=== PATIENT | male | born 1980 | race Caucasian/White ===

== ENCOUNTER 2023-09-24 08:52 | Outpatient (CLI) | payer OTHER ==
--- NOTE | 2023-09-24 09:52 | Sleep Patient Instructions ---
Sleep Center Visit Summary - Patient Visit Information Reason for Visit: Initial consultation - Patient Instructions Additional Instructions: You will continue with CPAP therapy once we can get a replacement device. A supply prescription will be sent to DME for a new machine and supplies We encourage you to continue to try to lose weight. Please follow up with the sleep care office one month after obtaining new device. - Clinic Information Contact: [facility] [address] [place] [address] [email or web address] T: [phone]
--- NOTE | 2023-09-24 10:03 | SLEEP CARE CONSULTATION ---
Information from patient questionnaire entered by Kacey Ornelas. I have reviewed and concur with the information entered by Kacey Ornelas. This document represents the service I personally performed and the decisions made by me, More Rooney ARNP. History of Present Illness Service Date and Time: 09/24/2023 0852 Reason for Visit: New patient, sleep apnea on CPAP therapy Chief Complaint: reports: Insomnia, Unrefreshed sleep, Snoring, Excessive daytime sleepiness, Observed pauses in breathing, Fatigue, Frequent awakenings at night Date of Onset: 15YRS Usual bedtime: 830PM Time it takes to fall asleep: 30MIN Snores at night: Yes Observed to quit breathing while asleep: Yes Sleeps alone due to snoring: Yes Number of times waking at night: 2-3 Reasons for waking at night: reports: Other (UNKNOWN). denies: Choking, Gasping for air Toss, Turn, or Twitch while sleeping: Yes Recalls having dreams: Yes Usually gets out of bed at: 4AM Feels refreshed in the morning: No Morning headache: Yes (1-2 times a week) Sleepy or fatigued during the day: Yes Ever fallen asleep while driving: Yes (drowsy driving, no accidents) Takes day naps: Yes (4-5 times a week) Dreams during day naps: No Prior sleep studies: Yes Additional HPI information: TIMOB ANDERSEN was previously diagnosed to have unknown, AHI unknown, sleep apnea-hypopnea syndrome and comes in today to establish care for CPAP therapy. He tells me that his machine broke about 1.5 months ago. He says he was diagnosed with severe sleep apnea. - Parasomnia Symptoms Ever been unable to move upon waking from sleep: No Walks in sleep: No Talks in sleep: Yes Ever acted out dreams in sleep: No Ever felt weak in the knees when startled or emotional: No Bothered by creepy, crawly, restless sensations in legs: Yes Problems with memory or concentration: Yes CPAP Compliance Data Compliance data discussion: He has a Resmed Airsense 10 that is about 4 years old. He has been buying his supplies online. He is using a full face mask, AirFit F20, medium cushion. His machine stopped working about 6 weeks ago, it will not turn on. He tried replacing the electrical cord and it still does not work. He used to wear it 6-7 hours nightly prior to it breaking. He thinks his pressure is set at 17 cmH2O. Subjective Patient concerns: reports: aerophagia (since weight loss, occasional). denies: mask discomfort, air blowing in eyes, mask leak noise, condensation in mask/hose, nasal congestion, dry mouth, nose, throat, epistaxis Observed to snore while using device: No Current pressure setting perceived as: comfortable On therapy, patient: reports: sleeping better, awakening more refreshed, being more awake and alert during the day, more rested overall. 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 Patient is and lives in . Have you smoked in the past 12 months: Yes Cigarettes per day (20/pack): 10 Years of smokin Smoking Pack Years: 12.5 Alcohol use: Yes Alcohol amount and frequency: 3 SHOTS DAILY Caffeine use: Yes Caffeine amount and frequency: POP OCCASIONALLY Family History Family history of sleep disordered breathing: Yes Family Hx Sleep Apnea: Mother: Sleep apnea - Treated, Father: Sleep apnea - Treated Allergies and Home Medications Known drug allergies: No Drug allergies reviewed: Yes Home medication list reviewed: Yes (as listed) Allergy and home medication list: Home Medications Medication Instructions Recorded Confirmed Last Taken Type Alprazolam [Xanax Xr] See Rx Instructions .ROUTE .COMPLEX 09/24/23 09/24/23 U nknown History Escitalopram Oxalate [Lexapro] See Rx Instructions .ROUTE .COMPLEX 09/24/23 09/24/23 Unknown History QUEtiapine [SEROquel] See Rx Instructions .ROUTE .COMPLEX 09/24/23 09/24/23 Unkn own History Review of Systems Weight loss over past 5 years: 50 Cardiovascular: reports: leg or foot swelling. denies: high blood pressure Respiratory: reports: wheeze Neurological: denies: headaches Psychiatric: reports: anxiety, depression, mood disorder Endocrine: reports: sluggishness Musculoskeletal: reports: joint swelling Physical Exam Vital signs obtained and entered by: KACEY Muñoz MA Blood Pressure: 128/74 (LEFT ARM) Cuff size: long Heart Rate: 51 O2 Saturation: 97 Height: 5 ft 7 in Weight: 273 lb 9.6 oz Body Mass Index: 42.8 BMI Classification: Morbidly Obese Neck circumference: 16.5 Heart: regular rate and rhythm Lungs: clear bilaterally Impression and Plan 1. Obstructive Sleep Apnea-Hypopnea Syndrome, unknown, with unknown treatment compliance and unknown apnea control. On CPAP therapy, the patient has better sleep quality and is more rested overall. About 6 weeks ago his machine stopped working. He is noticing an increase in his daytime fatigue, sleepiness and lower energy. He needs a new CPAP device. We have requested a copy of his last sleep study. He has lost about 50 pounds in the last 5 years and has noted increased aerophagia with using CPAP. We probably need to decrease his pressure settings. I would also like to see if we can get another sleep study to verify any changes in his sleep apnea with his weight loss. I will order a PSG and followup after the study. Once I have a copy of last sleep study or new study results, I will write for DME transfer and new machine/supplies. A DWO prescription will be made. Compliance guidelines for new device and follow up discussed. He voiced understanding and agreement with plan of care. Patient's apnea severity and rationale for treatment to reduce apnea, improve sleep quality and reduce cardiovascular and cerebrovascular events was reviewed. I also reviewed the benefit of consistent device use of CPAP for depression/anxiety and mood disorder (bipolar). 2. Obesity, unspecified. Currently patients BMI is 42.8. Obesity increases the risk of apnea, CPAP pressure requirements and overall health risks especially cardiovascular and diabetes. Thus patient is advised to lose weight. * Continue CPAP once we are able to get him a new CPAP * Transfer DME * Update machine and supply once I have a copy of last sleep study * Verifying PSG because of weight loss * Notify me if snoring with mask or feeling that the pressure is too much or too little * Attempt to lose weight * Call this office if any problems using CPAP * Return for follow up one month after obtaining new device, or sooner if concerns arise Counseling Topics: Weight loss health impact Prescriptions: Auto CPAP, Device supplies Plan: verifying PSG; update CPAP Visit Type: In Office Time Spent with Patient (minutes): 34 Provider Statement: I spent 100% of the Face to Face Visit with the patient with greater than 50% spent counseling the patient and coordination of care.
[2023-09-24 10:10] VITALS: BP 128/74; O2SAT 97
== END 2023-09-24 08:53 | disposition home or self-care (01) ==
LOC: SC 08:52
PROVIDERS: ATTEND Nurse Practitioner Family
DX: G47.33 Obstructive sleep apnea (adult) (pediatric) (principal); F17.210 Nicotine dependence, cigarettes, uncomplicated; E66.01 Morbid (severe) obesity due to excess calories; Z68.41 Body mass index [BMI] 40.0-44.9, adult
CPT/HCPCS: 99203; 99212

== ENCOUNTER 2023-10-05 09:29 | Outpatient (CLI) | payer OTHER | END 2023-10-05 09:30 | disposition home or self-care (01) | LOC: SC 09:29 | PROVIDERS: ATTEND Nurse Practitioner Family | DX: G47.33 Obstructive sleep apnea (adult) (pediatric) (principal); R09.02 Hypoxemia; R00.0 Tachycardia, unspecified | CPT/HCPCS: 95806 ==

== ENCOUNTER 2023-10-14 16:17 | Outpatient (CLI) | payer OTHER ==
--- NOTE | 2023-10-14 16:06 | SLEEP CARE CONSULTATION ---
Information from patient questionnaire entered by Kacey Ornelas. I have reviewed and concur with the information entered by Kacey Ornelas. This document represents the service I personally performed and the decisions made by , More Rooney ARNP. History of Present Illness Service Date and Time: 10/14/2023 1540 Initial [place] Sleepiness Scale score: 15 (09/24/23) Current [place] Sleepiness Scale score: 19 () Additional HPI information: TIMBO ANDERSEN returns via video appointment for follow up and results of the recently performed home sleep study. The sleep study showed severe obstructive sleep apnea with an average AHI of 48.9 and evelyn oxygen saturation of 80%. He had tachycardia with maximum heart rate of 147. I explained the pathophysiology behind obstructive sleep apnea. We then spent quite a bit of time discussing different treatment options. For mild obstructive sleep apnea, surgery and oral appliance are alternatives to nasal CPAP therapy but in moderate or severe cases, nasal CPAP is the most effective and reliable treatment. I reviewed the impact of weight changes on sleep apnea and strongly recommended losing weight. After some discussion, the patient would like to continue with the nasal CPAP therapy. Nasal autoCPAP set at 15-17 cmH20. Patient counseled not drink alcohol less than 4 hours before bedtime as it can increase snoring and apnea. Patient was cautioned about risks of drowsy driving until sleepiness symptoms resolve. Sleep Study - Results Type of Sleep Study: Home sleep study (COMPLETED 10/05/23) Prior sleep studies: Yes Polysomnography/Home Sleep Study results: Physician Impression: The quality of the study is fair due to partial loss of pulse oximetry signal. The length of the study is adequate (> 240 minutes). Please also see the tabulated and graphic data. 1. Obstructive Sleep Apnea-Hypopnea (ICD-10 G47.33), severe, with an AHI of 48.9 /hr and evelyn SaO2 of 80%. During the study, the patient had 327 apneas (327 obstructive, 0 central, 0 mixed) and 50 hypopneas. The longest episode lasted 69.5 seconds. The respiratory events occurred more frequently during supine sleep (supine AHI was 98.6 and non-supine, 42.73). 2. Hypoxemia (ICD-10 R09.02), mild, with the lowest oxygen saturation of 80 % and 38.7 minutes with SaO2 under 90%. Baseline oxygen saturation was normal (Average oxygen saturation was 93%). 3. Tachycardia, with maximum recorded heart rate of 147 beats per minute. Allergies and Home Medications Known drug allergies: No Drug allergies reviewed: Yes Home medication list reviewed: Yes (no changes) Allergy and home medication list: Allergies No Known Drug Allergies Allergy Review of Systems Review of systems same as previous: Yes (NO CHANGE) Physical Exam Vital signs obtained and entered by: KACEY Muñoz MA Height: 5 ft 6 in (PER PT) Weight: 260 lb (PER PT) Body Mass Index: 41.9 BMI Classification: Morbidly Obese Impression and Plan 1. Obstructive Sleep Apnea-Hypopnea Syndrome, severe, with lowest oxygen saturation of 80%. Obviously this is the cause of the patients symptoms of unrefreshed sleep, and excessive daytime sleepiness. Positive pressure therapy could benefit anxiety, depression and mood disorder (bipolar). As mentioned above, the patient will be continued on nasal autoCPAP therapy with pressure set at 15-17 cmH2O. Compliance guidelines also reviewed. A copy of compliance guidelines will be given for reference at check out. 2. Hypoxemia, mild, with a evelyn oxygen saturation of 80% and 38.7 minutes spent under 90%. The baseline oxygen saturation was normal with an average oxygen saturation of 93%. 3. Tachycardia. On HST, his heart rate was recorded at maximum of 147 bpm. I advised him to followup with PCP for possible cardiac monitoring and evaluation. He voiced understanding. 4. Obesity, unspecified. Currently patients BMI is 41.9. Obesity increases the risk of apnea, CPAP pressure requirements and overall health risks especially cardiovascular and diabetes. Thus patient is advised to lose weight. * Nasal auto CPAP therapy, pressure at 15-17 cm H2O. * Followup with PCP for tachycardia * Attempt to lose weight. * Avoid alcohol consumption near bedtime. * Avoid supine sleep until using CPAP. * The patient is again cautioned about driving until sleepiness completely resolves. * Return one month after CPAP obtained. I will assess response to therapy and compliance at that time. Counseling Topics: Weight loss health impact Prescriptions: Auto CPAP Visit Type: Telehealth Video Video Type: Doximity Patient Location: Home Location of Provider: Office Patient agrees and consents to this telehealth visit type: Yes Patient agrees to have their insurance billed: Yes Time Spent with Patient (minutes): 11 Provider Statement: I spent 100% of the Telehealth Video Call with the patient with greater than 50% spent counseling the patient and coordination of care.
== END 2023-10-14 16:18 | disposition home or self-care (01) ==
LOC: SC 16:17
PROVIDERS: ATTEND Nurse Practitioner Family
DX: G47.33 Obstructive sleep apnea (adult) (pediatric) (principal); R09.02 Hypoxemia; R00.0 Tachycardia, unspecified; E66.01 Morbid (severe) obesity due to excess calories; Z68.41 Body mass index [BMI] 40.0-44.9, adult